=== PATIENT | male | born 1970 | race Caucasian/White ===

== ENCOUNTER 2018-04-19 08:55 | Observation (INO) | payer MEDICAID ==
[2018-04-19 09:42] LABS: ADD MAN DIFF? NO
[2018-04-19 09:44] LABS: WHITE BLOOD COUNT 7.4 10^3/ul (4.8-10.8)
[2018-04-19 09:44] LABS: BASOPHIL # 0.1 10^3/ul (0.0-0.1); BASOPHILS % 0.7 % (0.0-2.0); EOSINOPHILS # 0.4 10^3/ul (0.0-0.5); EOSINOPHILS % 4.7 % (0.0-7.0); HEMATOCRIT 44.7 % (42.0-52.0); HEMOGLOBIN 15.4 g/dl (14.0-18.0); LYMPHOCYTES # 2.2 10^3/ul (0.8-2.9); LYMPHOCYTES % 29.8 % (15.0-51.0); MEAN CORPUSCULAR HEMOGLOBIN 29.1 pg (29.0-33.0); MEAN CORPUSCULAR HGB CONC 34.5 g/dl (32.0-37.0); MEAN CORPUSCULAR VOLUME 84.3 fl (82.0-101.0); MEAN PLATELET VOLUME 10.1 fl (7.4-10.4); MONOCYTE # 0.6 10^3/ul (0.3-0.9); MONOCYTES % 7.7 % (0.0-11.0); NEUTROPHIL # 4.2 10^3/ul (1.6-7.5); NEUTROPHILS % 56.7 % (39.0-77.0); PLATELET COUNT 240 10^3/UL (140-415); RED CELL DISTRIBUTION WIDTH 12.5 % (11.5-14.5)
[2018-04-19 10:05] LABS: ALANINE AMINOTRANSFERASE 62 IU/L (13-69); ALBUMIN 4.6 g/dl (3.3-4.9); ALBUMIN/GLOBULIN RATIO 1.17; ALKALINE PHOSPHATASE 85 IU/L (42-121); ANION GAP 8 (5-13); ASPARTATE AMINO TRANSFERASE 50 IU/L (15-46); BILIRUBIN,INDIRECT 0.5 mg/dl (0-1.1); BILIRUBIN,TOTAL 0.5 mg/dl (0.2-1.3); BLOOD UREA NITROGEN 14 mg/dl (7-20); CALCIUM 9.6 mg/dl (8.4-10.2); CARBON DIOXIDE 27 mmol/L (21-31); CHLORIDE 106 mmol/L (97-110); CHOL/HDL RATIO 6.3 RATIO; CHOLESTEROL 228 mg/dl (100-200); Estimated GFR > 60 mL/min (>60); GLUCOSE 88 mg/dl (70-220); HDL CHOLESTEROL 36 mg/dl (27-67); LDL CHOLESTEROL,CALCULATED 124 mg/dl; POTASSIUM 4.4 mmol/L (3.5-5.1); SODIUM 141 mmol/L (135-144); TOTAL PROTEIN 8.5 g/dl (6.1-8.1); TRIGLYCERIDES 340 mg/dl (0-149)
[2018-04-19 10:16] LABS: TROPONIN-I < 0.012 ng/ml (0.000-0.120)
[2018-04-19] MEDS: ASPIRIN 325 MG TAB PO (11:15)
[2018-04-19] MEDS ORDERED: NACL 0.9% 3 ML SYG IV (13:00)
[2018-04-19] MEDS ORDERED: ONDANSETRON 4 MG INJ IV (13:00)
[2018-04-19 13:41] LABS: FREE T4 (FREE THYROXINE) 0.94 ng/dl (0.64-1.79)
[2018-04-19 13:43] LABS: HEMOGLOBIN A1C 5.1 % (0-5.9)
[2018-04-19 14:19] LABS: ERYTHROCYTE SEDIMENTATION RATE 15 mm/Hr (0-15)
[2018-04-19 14:36] LABS: C-REACTIVE PROTEIN < 0.5 mg/dl (0.0-0.9)
[2018-04-19 18:30] LABS: CREATINE KINASE 77 IU/L (23-200)
[2018-04-19 18:44] LABS: CK INDEX 0.5; CK-MB 0.36 ng/ml (0.0-2.4); TROPONIN-I < 0.012 ng/ml (0.000-0.120)
[2018-04-19] MEDS: ACETAMINOPHEN 325 MG TAB PO (19:42)
[2018-04-19] MEDS: ATORVASTATIN 40 MG TAB PO (20:34)
[2018-04-19 22:35] LABS: AMPHETAMINE/METHAMPHETAMINE Negative (NEGATIVE); BARBITURATES Negative (NEGATIVE); BENZODIAZEPINES Negative (NEGATIVE); CANNABINOIDS Negative (NEGATIVE); COCAINE Negative (NEGATIVE); OPIATES Negative (NEGATIVE)
[2018-04-19 23:49] LABS: CREATINE KINASE 84 IU/L (23-200)
[2018-04-20] LABS: CK INDEX 0.4; TROPONIN-I < 0.012 ng/ml (0.000-0.120)
[2018-04-20 03:49] LABS: ADD MAN DIFF? NO
[2018-04-20 03:55] LABS: BASOPHIL # 0.1 10^3/ul (0.0-0.1); EOSINOPHILS # 0.4 10^3/ul (0.0-0.5); EOSINOPHILS % 5.9 % (0.0-7.0); HEMATOCRIT 42.9 % (42.0-52.0); HEMOGLOBIN 15.2 g/dl (14.0-18.0); LYMPHOCYTES # 2.4 10^3/ul (0.8-2.9); LYMPHOCYTES % 34.3 % (15.0-51.0); MEAN CORPUSCULAR HEMOGLOBIN 29.7 pg (29.0-33.0); MEAN CORPUSCULAR HGB CONC 35.4 g/dl (32.0-37.0); MEAN PLATELET VOLUME 10.4 fl (7.4-10.4); MONOCYTE # 0.5 10^3/ul (0.3-0.9); MONOCYTES % 7.2 % (0.0-11.0); NEUTROPHIL # 3.6 10^3/ul (1.6-7.5); PLATELET COUNT 239 10^3/UL (140-415); RED BLOOD COUNT 5.11 10^6/ul (4.70-6.10); RED CELL DISTRIBUTION WIDTH 12.5 % (11.5-14.5)
[2018-04-20 03:55] LABS: WHITE BLOOD COUNT 7.1 10^3/ul (4.8-10.8)
[2018-04-20 04:10] LABS: CREATINE KINASE 81 IU/L (23-200)
[2018-04-20 04:15] LABS: PHOSPHORUS 4.9 mg/dl (2.5-4.9)
[2018-04-20 04:15] LABS: MAGNESIUM 2.1 mg/dl (1.7-2.5)
[2018-04-20 04:16] LABS: ANION GAP 8 (5-13); BLOOD UREA NITROGEN 16 mg/dl (7-20); CALCIUM 9.5 mg/dl (8.4-10.2); CARBON DIOXIDE 26 mmol/L (21-31); CHLORIDE 105 mmol/L (97-110); CREATININE 0.76 mg/dl (0.61-1.24); Estimated GFR > 60 mL/min (>60); GLUCOSE 88 mg/dl (70-220); POTASSIUM 4.1 mmol/L (3.5-5.1); SODIUM 139 mmol/L (135-144)
[2018-04-20 04:23] LABS: CK INDEX 0.4; CK-MB 0.36 ng/ml (0.0-2.4); TROPONIN-I < 0.012 ng/ml (0.000-0.120)
[2018-04-20] MEDS: ASPIRIN (EC) 81 MG TAB PO (08:02)
[2018-04-20] MEDS: ENOXAPARIN 40 MG/0.4 ML SYG SC (08:06)
[2018-04-20 14:16] LABS: ADD UMIC NO; UR ASCORBIC ACID NEGATIVE (NEGATIVE); UR BILIRUBIN (Dip) NEGATIVE (NEGATIVE); UR BLOOD (Dip) NEGATIVE (NEGATIVE); UR CLARITY CLEAR (CLEAR); UR COLOR STRAW (YELLOW); UR GLUCOSE (Dip) NEGATIVE (NEGATIVE); UR KETONES (Dip) NEGATIVE (NEGATIVE); UR LEUKOCYTE ESTERASE (Dip) NEGATIVE Leu/ul (NEGATIVE); UR NITRITE (Dip) NEGATIVE (NEGATIVE); UR SPECIFIC GRAVITY (Dip) 1.005 (1.003-1.030); UR TOTAL PROTEIN (Dip) NEGATIVE (NEGATIVE); UR UROBILINOGEN (Dip) NEGATIVE (NEGATIVE)
[2018-04-20] MEDS: ATORVASTATIN 40 MG TAB PO (20:22)
[2018-04-21] MEDS: ASPIRIN (EC) 81 MG TAB PO (07:42)
[2018-04-21] MEDS: ENOXAPARIN 40 MG/0.4 ML SYG SC (07:46)
== END 2018-04-21 17:30 | disposition home or self-care (01) ==
LOC: E/R 08:55 → 6WM 11:24
DX: R20.0 Anesthesia of skin (principal); R53.1 Weakness; R07.89 Other chest pain; E78.5 Hyperlipidemia, unspecified; E66.9 Obesity, unspecified; Z68.27 Body mass index [BMI] 27.0-27.9, adult; Z79.82 Long term (current) use of aspirin
CPT/HCPCS: 70450; 70551; 71045; 72141; 80048; 80053; 80061; 80307; 81003; 82550; 82553; 83036; 83735; 84100; 84439; 84443; 84484; 85025; 85651; 86140; 93005; 93306; 99285-25; G0378